=== PATIENT | male | born 1940 | race Caucasian/White ===

== ENCOUNTER → 2016-05-23 | Outpatient (CLI) | payer OTHER, MEDICARE | LOC: BHCLAF 14:15 | PROVIDERS: ATTEND Internal Medicine Cardiovascular Disease | DX: I25.10 Atherosclerotic heart disease of native coronary artery without angina pectoris (principal); I10 Essential (primary) hypertension; E78.5 Hyperlipidemia, unspecified; G47.33 Obstructive sleep apnea (adult) (pediatric); Z95.5 Presence of coronary angioplasty implant and graft | CPT/HCPCS: 93005-PO ==

== ENCOUNTER → 2016-07-04 | Outpatient (CLI) | payer OTHER, MEDICARE | LOC: BHLMT 08:30 | PROVIDERS: ATTEND Internal Medicine Cardiovascular Disease | DX: I25.10 Atherosclerotic heart disease of native coronary artery without angina pectoris (principal); Z95.5 Presence of coronary angioplasty implant and graft | CPT/HCPCS: 78452; 93017; A9500 ==

== ENCOUNTER → 2016-07-18 | Outpatient (CLI) | payer OTHER, MEDICARE | LOC: GIMAGING 09:14 | PROVIDERS: ATTEND Family Medicine | DX: M48.12 Ankylosing hyperostosis [Forestier], cervical region (principal); M46.92 Unspecified inflammatory spondylopathy, cervical region | CPT/HCPCS: 72050-PO ==